=== PATIENT | male | born 1960 | race Caucasian/White ===

== ENCOUNTER 2017-01-09 09:49 | Emergency (ER) | payer OTHER ==
[2017-01-09 10:14] VITALS: BP 113/71
--- NOTE | 2017-01-09 11:21 | UC ---
Skin Complaint HPI - HPI Summary HPI Summary: 56 male presents with complaints of having two tick bites that he sustained this past Saturday01/04/17 while out fishing. Patient states he felt the first tick bite and was able to remove it immediately with his fingers. Inner left thigh. The inner right thigh he noticed Saturday night also had a tick attached, that he removed with tweezers. He used alcohol and witch harper and triple antibiotic ointment on these wounds after removal. He did remove both ticks. Since the bite the right one has became swollen, red and itchy. Patient states it has since improved but thought he should be checked out. Denies any other new symptoms or complaints at this time. - History of Current Complaint Chief Complaint: UCSkin Time Seen by Provider: 01/09/17 10:09 Stated Complaint: TICK BITE Hx Obtained From: Patient Onset/Duration: Sudden Onset Skin Exposure Onset/Duration: Days Ago - 6 days ago Onset Severity: Moderate Current Severity: Mild Pain Intensity: 1 Pain Scale Used: 0-10 Numeric Location: Other - inner thighs Character: Pruritus, Redness, Raised Aggravating: Other - treatment prior to arrival, alcohol, witch harper and scratching Alleviating: Nothing Associated Signs & Symptoms: Positive: Negative Related History: Insect Bite/Sting - tick bite - Allergy/Home Medications Allergies/Adverse Reactions: Allergies Allergy/AdvReac Type Severity Reaction Status Date / Time No Known Allergies Allergy Verified 12/23/13 09:31 Home Medications: Home Medications Ibuprofen [Ibuprofen 200 MG] 400 mg PO PRN 01/09/17 [History] Tamsulosin CAP* [Flomax CAP*] 0.4 mg PO DAILY 01/09/17 [History Confirmed ] Review of Systems Constitutional: Negative Skin: Rash - tick bites Respiratory: Negative Cardiovascular: Negative Gastrointestinal: Negative Motor: Negative Neurovascular: Negative Neurological: Negative All Other Systems Reviewed And Are Negative: Yes PMH/Surg Hx/FS Hx/Imm Hx Endocrine History Of: Denies: Diabetes, Thyroid Disease Cardiovascular History Of: Denies: Cardiac Disorders, Hypertension Respiratory History Of: Denies: COPD, Asthma GI/ History Of: Denies: Ulcer - Surgical History Surgical History: Yes Surgery Procedure, Year, and Place: Spinal surgery x2 - Family History Known Family History: Positive: None - Social History Alcohol Use: None Substance Use Type: None Smoking Status (MU): Current Some Day Smoker Type: Cigarettes Amount Used/How Often: 1ppd Physical Exam Triage Information Reviewed: Yes Appearance: Well-Appearing, No Pain Distress, Well-Nourished Vital Signs: Initial Vital Signs Temp 98.6 F 01/09/17 10:09 Pulse 60 01/09/17 10:09 Resp 16 01/09/17 10:09 BP 113/71 01/09/17 10:09 Pulse Ox 99 01/09/17 10:09 Vital Signs Reviewed: Yes Eyes: Positive: Conjunctiva Clear ENT Exam: Normal ENT: Positive: Normal ENT inspection Neck: Positive: Supple, Nontender, No Lymphadenopathy Respiratory: Positive: Chest non-tender, Lungs clear, Normal breath sounds, No respiratory distress, No accessory muscle use Cardiovascular: Positive: RRR, No Murmur, Pulses Normal, Brisk Capillary Refill Musculoskeletal: Positive: Strength Intact, ROM Intact, No Edema Neurological Exam: Normal Neurological: Positive: Alert Skin: Positive: Other - 2 tick bite wounds, one on inner right thigh and one on inner left tigh. Right thigh appears to be 2cm erythematous area in diameter and has improved since first removed per patient. no sign of erythema migrans. appears to be irriated/infected on right thigh. No discharge, no longer pruritic. left inner thigh appears normal minimal erythema. no FB. Course/Dx - Course Course Of Treatment: patient educated on lyme disease and tick bites. no erythema migrans noted. patient is aware of worsening signs and symptoms. no treatment needed at this time. patient's symptoms have been improving and appear to continue to improve. told to discontinue applying alcohol and witch harper. keep an eye out for new symptoms. follow up with pcp in a few weeks if he would like lyme disease testing. - Differential Diagnoses - Skin Complaint Differential Diagnoses: Allergic Reaction, Cellulitis, Contact Dermatitis, Tick Born Illness, Tinea, Urticaria, Other - Diagnoses Provider Diagnoses: tick bite Discharge - Discharge Plan Condition: Stable Disposition: HOME Patient Education Materials: Tick Bite (ED), Lyme Disease (ED) Referrals: Angely Montgomery MD [Medical Doctor] - Additional Instructions: Keep an eye out on tick bite wounds for the next couple of weeks. Typically the bulls eye rash appears weeks after the initial bite. If the wounds do not appear to be improving or bulls eye rash appears please follow up with primary doctor or return for treatment. Keep area clean and dry. Discontinue using alcohol and witch harper on the wounds. Follow up with primary care doctor.
== END 2017-01-09 11:34 | disposition home or self-care (01) ==
LOC: UCEAST 09:49
DX: S70.362A Insect bite (nonvenomous), left thigh, initial encounter (principal); S70.361A Insect bite (nonvenomous), right thigh, initial encounter; W57.XXXA Bitten or stung by nonvenomous insect and other nonvenomous arthropods, initial encounter; Y93.9 Activity, unspecified; Y92.9 Unspecified place or not applicable; Z72.0 Tobacco use
CPT/HCPCS: 99211; G0463